=== PATIENT | male | born 1945 | race Caucasian/White ===

== ENCOUNTER → 2023-05-25 15:05 | Outpatient (CLI) | payer MEDICARE, SELFPAY ==
--- NOTE | ~2023-05-25 | CT_ITS ---
EXAMINATION: CTA neck DATE: 05/25/2023 15:54 INDICATION: Occlusion of left vertebral artery. TECHNIQUE: Computed tomographic angiography (CTA) of the neck was performed with 100 mL Omnipaque-350 intravenous contrast. Automated exposure control and iterative reconstruction technique were employe d. The dose-length product was 552.57 mGy-cm. Maximum intensity projection 3D-reconstructions were cr eated by the technologist on a separate workstation. COMPARISON: None. FINDINGS: There are no pathologically enlarged lymph nodes. Right vertebral artery is dominant. 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 There is severe stenosis o f the reconstituted segment. There is mild plaque in the proximal internal carotid arteries. There is 0% stenosis of the proximal right internal carotid artery relative to normal distal artery lumen juarez meter (NASCET criteria). There is 0% stenosis of the proximal left internal carotid artery relative t o normal distal artery lumen diameter. There is severe cervical spondylosis. IMPRESSION: 1. 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 Severe stenosis of the esther nstituted segment. 2. 0% stenosis of the proximal internal carotid arteries relative to normal distal artery lumen diame ters (NASCET criteria). Reviewed, dictated and finalized at location E. IMPRESSION: 1. 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 Sever e stenosis of the reconstituted segment. 2. 0% stenosis of the proximal internal carotid arteries relative to normal dis angeles artery lumen diameters (NASCET criteria).
[2023-05-25 15:38] LABS: Estimated Glomerular Filt Rate > 60
== END ==
PROVIDERS: Visit Provider Pediatrics
DX: I65.02 Occlusion and stenosis of left vertebral artery (principal)
CPT/HCPCS: 70498; Q9967